=== PATIENT | male | born 1990 | race Caucasian/White ===

== ENCOUNTER 2022-11-07 18:46 | Emergency (ER) | payer OTHER ==
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
[2022-11-07] MEDS ORDERED: TETANUS,DIPTH,PERTUSS P/F (BOOSTRIX) 0.5 ML VIAL IM ONE (19:30)
[2022-11-07 19:43] VITALS: BP 138/95
== END 2022-11-07 19:43 | disposition home or self-care (01) ==
LOC: ER 18:50
DX: S51.812A Laceration without foreign body of left forearm, initial encounter (principal); Z28.310 Unvaccinated for COVID-19; Z23 Encounter for immunization; W26.0XXA Contact with knife, initial encounter
CPT/HCPCS: 12001; 90715